=== PATIENT | female | born 1990 | race Caucasian/White ===

== ENCOUNTER 2017-02-15 19:25 | Emergency (ER) | payer MEDICAID ==
[~2017-02-15] VITALS: Ht 160 cm; Wt 104.3 kg
[2017-02-15 21:57] LABS: BASOPHIL % 0.4 % (0-2); PLATELET COUNT 340 x10^3mcL (130-400); RED CELL DISTRIBUTION WIDTH 13.4 % (11.5-14.5)
[2017-02-15 22:10] LABS: CALCIUM 8.5 mg/dL (8.5-10.1); CARBON DIOXIDE 28.7 mmol/L (21-32); CHLORIDE SERUM 104 mmol/L (98-107); CREATININE SERUM 0.7 mg/dL (0.6-1.0); GFR1 > 60 mL/min; GLUCOSE SERUM 139 mg/dL (74-106); POTASSIUM SERUM 3.7 mmol/L (3.5-5.1); SODIUM SERUM 141 mmol/L (136-145)
[2017-02-15 22:14] LABS: ALBUMIN 3.5 g/dL (3.4-5.0); ALKALINE PHOSPHATASE 121 U/L (46-116); ALT/SGPT 133 U/L (14-59); AMYLASE 41 U/L (25-115); AST/SGOT 56 U/L (15-37); BILIRUBIN TOTAL 0.3 mg/dL (0.20-1.00); LIPASE 197 IU/L (73-393); TOTAL PROTEIN, SERUM 7.8 g/dL (6.4-8.2)
[2017-02-16 02:07] VITALS: BP 118/66
== END 2017-02-16 02:07 | disposition home or self-care (01) ==
LOC: ED 19:25
PROVIDERS: Emergency Medicine
DX: R10.13 Epigastric pain (principal); R11.10 Vomiting, unspecified
CPT/HCPCS: J2405; J3010; J7030

== ENCOUNTER 2017-04-09 21:36 | Emergency (ER) | payer MEDICAID ==
[~2017-04-09] VITALS: Ht 154.9 cm; Wt 104.3 kg
[2017-04-09 22:58] VITALS: BP 145/75
== END 2017-04-09 22:58 | disposition home or self-care (01) ==
LOC: ED 21:36
DX: R21 Rash and other nonspecific skin eruption (principal); L29.9 Pruritus, unspecified
CPT/HCPCS: Q0163

== ENCOUNTER 2017-04-29 03:25 | Emergency (ER) | payer MEDICAID ==
[2017-04-29 05:34] VITALS: BP 141/64
== END 2017-04-29 05:34 | disposition home or self-care (01) ==
LOC: ED 03:25
DX: N76.0 Acute vaginitis (principal); E66.01 Morbid (severe) obesity due to excess calories

== ENCOUNTER 2017-05-07 00:04 | Emergency (ER) | payer MEDICAID ==
[~2017-05-07] VITALS: Ht 157.5 cm; Wt 99.0 kg
[2017-05-07 01:47] LABS: UA SPECIFIC GRAVITY <=1.005 (1.005-1.035); microscopic required? YES; urine erythrocyte TRACE (NEGATIVE)
[2017-05-07 02:37] LABS: CALCIUM 8.8 mg/dL (8.5-10.1); CARBON DIOXIDE 25.6 mmol/L (21-32); CHLORIDE SERUM 102 mmol/L (98-107); CREATININE SERUM 0.8 mg/dL (0.6-1.0); GFR1 > 60 mL/min; GLUCOSE SERUM 404 mg/dL (74-106); POTASSIUM SERUM 3.7 mmol/L (3.5-5.1); SODIUM SERUM 138 mmol/L (136-145)
[2017-05-07 02:42] LABS: ALBUMIN 3.6 g/dL (3.4-5.0); ALKALINE PHOSPHATASE 140 U/L (46-116); ALT/SGPT 324 U/L (14-59); AST/SGOT 259 U/L (15-37); BILIRUBIN TOTAL 0.34 mg/dL (0.20-1.00); TOTAL PROTEIN, SERUM 7.6 g/dL (6.4-8.2)
[2017-05-07 02:51] LABS: BASOPHIL % 0.3 % (0-2); PLATELET COUNT 258 x10^3mcL (130-400); RED CELL DISTRIBUTION WIDTH 13.4 % (11.5-14.5)
[2017-05-07 05:25] VITALS: BP 122/68
== END 2017-05-07 05:25 | disposition home or self-care (01) ==
LOC: ED 00:04
PROVIDERS: Emergency Medicine
DX: N76.0 Acute vaginitis (principal); N39.0 Urinary tract infection, site not specified; E11.9 Type 2 diabetes mellitus without complications; Z79.2 Long term (current) use of antibiotics
CPT/HCPCS: 82962; 87491; 87591; J1815; J7030; Q0092

== ENCOUNTER 2017-06-16 18:02 | Emergency (ER) | payer MEDICAID ==
[2017-06-16 20:58] VITALS: BP 132/94
== END 2017-06-16 20:58 | disposition home or self-care (01) ==
LOC: ED 18:02
DX: S61.011A Laceration without foreign body of right thumb without damage to nail, initial encounter (principal); X58.XXXA Exposure to other specified factors, initial encounter; Y93.89 Activity, other specified; Y92.89 Other specified places as the place of occurrence of the external cause; Y99.8 Other external cause status

== ENCOUNTER 2017-07-08 19:29 | Emergency (ER) | payer MEDICAID ==
[2017-07-08 22:46] VITALS: BP 123/79
== END 2017-07-08 22:46 | disposition home or self-care (01) ==
LOC: ED 19:29
DX: N76.0 Acute vaginitis (principal); B96.89 Other specified bacterial agents as the cause of diseases classified elsewhere; E11.9 Type 2 diabetes mellitus without complications
CPT/HCPCS: 87491; 87591

== ENCOUNTER 2018-04-17 00:14 | Emergency (ER) | payer MEDICAID ==
[~2018-04-17] VITALS: Ht 157.5 cm; Wt 94.8 kg
[2018-04-17 00:21] VITALS: Ht 157.5 cm; Wt 94.8 kg
[2018-04-17 01:39] LABS: CALCIUM 8.4 mg/dL (8.5-10.1); CARBON DIOXIDE 25.4 mmol/L (21-32); CHLORIDE SERUM 102 mmol/L (98-107); CREATININE SERUM 0.7 mg/dL (0.6-1.0); GFR1 > 60 mL/min; GLUCOSE SERUM 348 mg/dL (74-106); POTASSIUM SERUM 3.7 mmol/L (3.5-5.1); SODIUM SERUM 137 mmol/L (136-145)
[2018-04-17 03:59] VITALS: BP 155/96
== END 2018-04-17 03:59 | disposition home or self-care (01) ==
LOC: ED 00:14
PROVIDERS: Emergency Medicine
DX: E11.65 Type 2 diabetes mellitus with hyperglycemia (principal); R51 Headache
CPT/HCPCS: J1885; J7030

== ENCOUNTER 2019-11-27 23:20 | Emergency (ER) | payer MEDICAID ==
[~2019-11-27] VITALS: Ht 154.9 cm; Wt 90.7 kg
[2019-11-27 23:32] VITALS: Ht 154.9 cm; Wt 90.7 kg
[2019-11-28 03:58] VITALS: BP 139/94
== END 2019-11-28 03:58 | disposition home or self-care (01) ==
LOC: ED 23:20
PROVIDERS: Emergency Medicine
DX: R80.9 Proteinuria, unspecified (principal); E11.65 Type 2 diabetes mellitus with hyperglycemia; Z98.890 Other specified postprocedural states
CPT/HCPCS: 36600; 82962; 87491; 87591; J0696